=== PATIENT | male | born 1965 | race African-American/Black ===

== ENCOUNTER 2018-09-01 23:52 | Emergency (ER) | payer OTHER ==
[2018-09-02 00:16] VITALS: BP 176/91; PULSE 84; TEMP 97.4; BMI 35.1
--- NOTE | 2018-09-02 00:30 | PDOC ---
Attending Attestation - Resident Resident Name: Jax Echeverria - ED Attending Attestation I have performed the following: I have examined & evaluated the patient, The case was reviewed & discussed with the resident, I agree w/resident's findings & plan - HPI HPI: 09/02/18 00:47 53-year-old male requesting a record of his blood pressure medications. Patient is currently asymptomatic. He has had no associated chest pain neurological disturbance shortness of breath or headache. Patient cannot recall what his blood pressure medication was. He does admit to heavy smoking. He did admit he recently obtained insurance. - Physicial Exam PE: 09/02/18 00:47 GENERAL: Awake, in no acute distress HEAD: No signs of trauma EYES: ENT:clear without exudates. Moist mucosa NECK: Normal ROM, LUNGS:. Normal work of breathing. HEART: Regular rate and rhythm, ABDOMEN: Soft, nondistended CHEST WALL: BACK: No midline tenderness. EXTREMITIES:. No erythema, or tenderness NEUROLOGICAL: Alert, SKIN: Warm, Dry - Medical Decision Making 09/02/18 00:48 53-year-old male requesting refill of antihypertensives Patient currently asymptomatic He has agreed to follow-up with his primary care office in the morning prior to going to work, he was advised that should he develop headache, numbness or weakness in the extremities or face, chest pain shortness of breath or any new symptoms to return to the emergency department and not to wait for an appointment.
--- NOTE | 2018-09-02 00:44 | PDOC ---
History of Present Illness - General Chief Complaint: Blood Pressure Problem Stated Complaint: HIGH BLOOD PRESSURE Time Seen by Provider: 09/02/18 00:15 History Source: Patient, Old Records Exam Limitations: No Limitations - History of Present Illness Initial Comments: HPI: 53 y/o male presenting to [facility] ER complaining of high blood pressure without symptoms. Has a history of HTN and was previously on unknown antihypertensive mediation. Stopped taking it three months ago after losing his insurance. He recently re-obtained health insurance but has not re-established care with [facility]. PCP: [facility] Social Hx: - Works construction - Active tobacco smoker Medical Hx: - HTN Review of Systems: In addition to that documented in the HPI above, the additional ROS was obtained : Constitutional: Denies fevers or chills Head: Denies vision changes ENMT: Denies sore throat CV: Denies chest pain Resp: Denies SOB GI: Denies vomiting or diarrhea : Denies painful urination MSK: Denies recent trauma Skin: Denies new rashes Neuro: Denies new numbness or tingling or weakness Endocrine: Denies polyuria Heme: Denies bleeding or bruising Physical Examination: Constitutional: Well-developed, well-nourished adult male in no acute distress or obvious discomfort. Found semi-fowlers on hospital bed. Alert and oriented x4. Answered all questions appropriately and completely. Speech was non-labored , non-pressured. Head: Normocephalic. No obvious external signs of trauma. Eyes: Pupils 4mm and PERRL bilaterally. EOMI. Sclerae white. Conjunctiva moist and not injected. Ears: Hearing grossly intact. Nose: No nasal discharge. Throat: Oral cavity and pharynx normal. No inflammation, swelling, exudate, or lesions. Teeth and gingiva in good general condition. Neck: Supple, trachea is midline. Cardiovascular / Chest: Regular rate and regular rhythm. No murmur, rubs, clicks , or gallops. Peripheral pulses: radial pulses full. No anterior chest wall tenderness. No pretibial edema. Respiratory: Breathing unlabored. Equal chest rise and fall. Clear to auscultation bilaterally. No stridor, no wheezing, no rhonchi. Gastrointestinal: abdomen is soft, non-tender, non-distended. Neuro: Alert and oriented. Moving all four extremities spontaneously. No focal deficits. Cranial nerves intact. Sensation to all four extremities intact. Upper and lower extremities: proximal and distal strength 5/5. Residential Director strength 5/ 5 - equal and symmetric. Plantar flexion and dorsiflexion 5/5. No nuchal rigidity. Gait normal. Skin: Warm, dry, and intact. Psych: Affect: appropriate. Mood: normal. MDM: *Reviewed vital signs, nursing notes, and prior visit documentation (if available). 53 y/o male presenting with asymptomatic hypertension in the setting of known essential hypertension. Not compliant with medications. In process of re- establishing care at [facility]. Physical exam unremarkable. Discussed importance of smoking cessation and medication compliance. Explained the dangers of prescribing maintenance medications in the ED. Pt expressed verbal understanding. Will follow up with [facility] tomorrow morning. Also provided referral for resident clinic for secondary PCP. Jax Echeverria M.D., PGY1 Emergency Medicine Resident Past History - Past Medical History Allergies/Adverse Reactions: Allergies Allergy/AdvReac Type Severity Reaction Status Date / Time No Known Allergies Allergy Verified 06/14/14 09:06 Home Medications: Ambulatory Orders Lisinopril [Prinivil -] 10 mg PO DAILY 06/14/14 COPD: No HTN: Yes - Suicide/Smoking/Psychosocial Hx Smoking History: Current every day smoker Number of Cigarettes Smoked Daily: 10 Information on smoking cessation initiated: No Hx Alcohol Use: No Substance Use Type: None *Physical Exam - Vital Signs Last Vital Signs Temp Pulse Resp BP Pulse Ox 97.4 F L 84 18 176/91 H 100 09/02/18 00:14 09/02/18 00:14 09/02/18 00:14 09/02/18 00:14 09/02/18 00:14 *DC/Admit/Observation/Transfer Diagnosis at time of Disposition: Hypertension Qualifiers: Hypertension type: unspecified Qualified Code(s): I10 - Essential (primary) hypertension - Discharge Dispostion Disposition: HOME Condition at time of disposition: Good Decision to Admit order: No - Referrals Referrals: Mario Hoffmann [Primary Care Provider] - [facility] [place] [Provider Group] - Patient Instructions Printed Discharge Instructions: DI for High Blood Pressure Additional Instructions: You were seen today for high blood pressure and a refill of your medications. Your blood pressure was not elevated above the level concerning for an acute stroke. Unfortunately, the emergency department does not write prescriptions for non-emergent maintenance medications. It would be dangerous to start these types of medications without close follow up. Please follow up with your primary care doctor tomorrow at [facility] to re- establish care. In case you are unable to see a doctor at [facility], I have placed a referral for you to see the [facility] [place]. You will need to call to make an appointment. The number is [phone]. The address is as follows: [address] [place] [address] Go to the nearest emergency department if your condition worsens or you feel like you need additional emergency evaluation. Print Language: JAPANESE - Post Discharge Activity Forms/Work/School Notes: Back to Work
== END 2018-09-02 01:55 | disposition home or self-care (01) ==
LOC: JER 23:52
DX: I10 Essential (primary) hypertension (principal)
CPT/HCPCS: 99281-25

== ENCOUNTER 2020-12-28 01:41 | Emergency (ER) | payer OTHER ==
[2020-12-28 01:54] VITALS: BMI 33.5
[2020-12-28] MEDS ORDERED: ACETAMINOPHEN 325 MG TABLET (FP) PO ONE (02:15)
[2020-12-28] MEDS ORDERED: ACETAMINOPHEN 325 MG TABLET (FP) ONE (02:24)
[2020-12-28 03:12] LABS: BASO % 0.7 % (0-2.0); EOS % 1.9 % (0-4.5); HEMATOCRIT 39.6 % (35.4-49); HEMOGLOBIN 13.8 GM/dL (11.7-16.9); LYMPH % 21.9 % (8-40); MCH 31.3 pg (25.7-33.7); MCHC 34.9 g/dl (32.0-35.9); MEAN CELL VOLUME 89.6 fl (80-96); MEAN PLT VOLUME 8.3 fl (7.5-11.1); MONO % 4.7 % (3.8-10.2); NEUT % 70.8 % (42.8-82.8); PLATELET COUNT 183 10^3/uL (134-434); RBC 4.42 M/mm3 (4.00-5.60); RDW 12.9 % (11.9-15.9); WHITE BLOOD COUNT 10.8 K/mm3 (4.0-10.0)
[2020-12-28 03:31] LABS: CHLORIDE 110 mmol/L (98-107); SODIUM 141 mmol/L (136-145)
[2020-12-28 03:34] LABS: ALBUMIN 3.3 g/dl (3.4-5.0); ANION GAP 4 MMOL/L (8-16); BLOOD UREA NITROGEN 14.3 mg/dL (7-18); CALCIUM 8.6 mg/dL (8.5-10.1); CO2 28 mmol/L (21-32); GLUCOSE,RANDOM 102 mg/dL (74-106)
[2020-12-28 03:37] LABS: CREATININE 0.8 mg/dL (0.55-1.3); SGOT/AST 26 U/L (15-37); SGPT/ALT 35 U/L (13-61)
[2020-12-28 03:39] LABS: BILIRUBIN,TOTAL 0.4 mg/dL (0.2-1); TOT PROT 6.5 g/dl (6.4-8.2)
[2020-12-28 03:40] LABS: ALK PHOS 82 U/L (45-117)
[2020-12-28 08:26] VITALS: BP 120/71; PULSE 82; TEMP 97.4
== END 2020-12-28 08:25 | disposition home or self-care (01) ==
LOC: JER 01:41
DX: R07.9 Chest pain, unspecified (principal)
CPT/HCPCS: 36415; 71046-TC-FY; 80053; 82550; 84484; 85025; 93005; 93010; 99284-25

== ENCOUNTER 2021-05-20 00:48 | Emergency (ER) | payer OTHER ==
[2021-05-20 01:05] VITALS: BP 173/88; PULSE 66; TEMP 98.8; BMI 31.1
[2021-05-20] MEDS ORDERED: HYDROCORTISONE 1% TOPICAL OINT 30 GM TUBE TP ONE (01:52)
[2021-05-20] MEDS ORDERED: CEPHALEXIN MONOHYDRATE 500 MG CAPSULE (UD) ONE (02:13)
[2021-05-20] MEDS ORDERED: CEPHALEXIN MONOHYDRATE 500 MG CAPSULE (UD) PO ONE (02:36)
== END 2021-05-20 02:40 | disposition home or self-care (01) ==
LOC: JER 00:48
DX: L24.9 Irritant contact dermatitis, unspecified cause (principal)
CPT/HCPCS: 99283-25

== ENCOUNTER 2021-05-21 08:14 | Emergency (ER) | payer OTHER ==
[2021-05-21 08:20] VITALS: BP 167/81; PULSE 68; TEMP 98.8; BMI 37.4
[2021-05-21] MEDS ORDERED: ACETAMINOPHEN 500 MG TABLET (FP) PO ONE (09:38)
[2021-05-21] MEDS ORDERED: ACETAMINOPHEN 500 MG TABLET (FP) ONE (11:00)
[2021-05-21 11:33] LABS: HEMOGLOBIN 14.3 GM/dL (11.7-16.9); MCH 30.6 pg (25.7-33.7); MCHC 34.1 g/dl (32.0-35.9); MEAN CELL VOLUME 89.8 fl (80-96); MEAN PLT VOLUME 8.3 fl (7.5-11.1); PLATELET COUNT 200 10^3/uL (134-434); RBC 4.68 M/mm3 (4.00-5.60); RDW 12.4 % (11.9-15.9); WHITE BLOOD COUNT 9.9 K/mm3 (4.0-10.0)
[2021-05-21 11:50] LABS: CHLORIDE 109 mmol/L (98-107); SODIUM 141 mmol/L (136-145)
[2021-05-21 11:53] LABS: ALBUMIN 3.7 g/dl (3.4-5.0); ANION GAP 4 MMOL/L (8-16); BLOOD UREA NITROGEN 12.2 mg/dL (7-18); CALCIUM 9.2 mg/dL (8.5-10.1); CO2 29 mmol/L (21-32); GLUCOSE,RANDOM 83 mg/dL (74-106)
[2021-05-21 11:56] LABS: CREATININE 0.7 mg/dL (0.55-1.3); SGOT/AST 21 U/L (15-37); SGPT/ALT 38 U/L (13-61)
[2021-05-21 11:58] LABS: BILIRUBIN,TOTAL 0.5 mg/dL (0.2-1)
[2021-05-21 11:59] LABS: ALK PHOS 100 U/L (45-117)
== END 2021-05-21 12:55 | disposition home or self-care (01) ==
LOC: JER 08:14
DX: M25.512 Pain in left shoulder (principal)
CPT/HCPCS: 36415; 71046-TC-FY; 73030-TC-LT-FY; 80053; 84484; 85027; 93005; 93010; 99285-25

== ENCOUNTER 2021-11-12 19:26 | Emergency (ER) | payer OTHER ==
[2021-11-12 19:49] VITALS: BP 137/87; PULSE 67; RESP 20; TEMP 98.2; BMI 39.9
[2021-11-12] MEDS ORDERED: DIPHTH,PERTUSS(ACELL),TET 0.5 ML DISP.SYRIN IM ONE ×2 (20:45→20:46)
[2021-11-12] MEDS ORDERED: AMOX TR/POT CLAV 875MG/125MG TABLETS (FP) PO ONE (20:45)
[2021-11-12] MEDS ORDERED: AMOX TR/POT CLAV 875MG/125MG TABLETS (FP) ONE (20:46)
== END 2021-11-12 20:51 | disposition home or self-care (01) ==
LOC: JER 19:26 → JERFT 19:26
PROC: 3E0234Z Introduction of Serum, Toxoid and Vaccine into Muscle, Percutaneous Approach (ICD-10-PCS; principal; 2021-11-12)
DX: S81.832A Puncture wound without foreign body, left lower leg, initial encounter (principal); W54.0XXA Bitten by dog, initial encounter
CPT/HCPCS: 90471; 90715; 99284-25

== ENCOUNTER 2023-04-15 12:36 | Emergency (ER) | payer OTHER ==
[2023-04-15 12:48] VITALS: BP 141/72; PULSE 83; RESP 18; TEMP 98.6; BMI 32.3
[2023-04-15] MEDS ORDERED: FLUORESCEIN NA 1 EA STRIP OS ONE (14:35)
[2023-04-15] MEDS ORDERED: FLUORESCEIN NA 1 EA STRIP ONE (14:46)
[2023-04-15] MEDS ORDERED: ERYTHROMYCIN 0.5% OPHTHALMIC OINTMENT 3.5 GM TUBE ONE (15:12)
[2023-04-15] MEDS ORDERED: ERYTHROMYCIN 0.5% OPHTHALMIC OINTMENT 3.5 GM TUBE OD STA (15:27)
[2023-04-16] MEDS ORDERED: ERYTHROMYCIN 0.5% OPHTHALMIC OINTMENT 3.5 GM TUBE OS ONE (14:58)
== END 2023-04-15 16:05 | disposition home or self-care (01) ==
LOC: JERFT 12:36
DX: S01.112A Laceration without foreign body of left eyelid and periocular area, initial encounter (principal); H57.11 Ocular pain, right eye; W21.00XA Struck by hit or thrown ball, unspecified type, initial encounter
CPT/HCPCS: 99283-25

== ENCOUNTER 2023-09-13 10:09 | Emergency (ER) | payer OTHER ==
[2023-09-13 10:18] VITALS: BMI 32.1
[2023-09-13] MEDS ORDERED: KETOROLAC TROMETHAMINE 15 MG/ML VIAL ONE (10:39)
[2023-09-13] MEDS: KETOROLAC TROMETHAMINE 15 MG/ML VIAL IVPUSH ONE (10:50)
[2023-09-13 11:07] LABS: BASO % 0.4 % (0-2.0); EOS % 0.2 % (0-4.5); HEMATOCRIT 41.3 % (35.4-49); HEMOGLOBIN 13.9 GM/dL (11.7-16.9); LYMPH % 9.3 % (8-40); MCH 30.6 pg (25.7-33.7); MCHC 33.7 g/dl (32.0-35.9); MEAN CELL VOLUME 90.6 fl (80-96); MEAN PLT VOLUME 9.1 fl (7.5-11.1); MONO % 6.7 % (3.8-10.2); NEUT % 83.4 % (42.8-82.8); PLATELET COUNT 203 10^3/uL (134-434); RBC 4.56 M/mm3 (4.00-5.60); RDW 12.5 % (11.9-15.9); WHITE BLOOD COUNT 17.9 K/mm3 (4.0-10.0)
[2023-09-13 11:21] LABS: POTASSIUM 4.3 mmol/L (3.5-5.1)
[2023-09-13 11:23] LABS: CALCIUM 9.2 mg/dL (8.5-10.1)
[2023-09-13 11:24] LABS: ALBUMIN 3.4 g/dl (3.4-5.0); BLOOD UREA NITROGEN 10.7 mg/dL (7-18)
[2023-09-13 11:27] LABS: CREATININE 0.7 mg/dL (0.55-1.3)
[2023-09-13 11:28] LABS: BILIRUBIN,TOTAL 0.9 mg/dL (0.2-1)
[2023-09-13 11:29] LABS: TOT PROT 7.1 g/dl (6.4-8.2)
[2023-09-13 15:01] VITALS: TEMP 98.7
[2023-09-13] MEDS ORDERED: AMPICILLIN NA/SULBACTAM NA 3 GM/100 ML BAG IVPB ONE ×2 (15:45→23:32)
[2023-09-13] MEDS ORDERED: DEXAMETHASONE SOD PHOSPHATE 10 MG/1 ML VIAL ONE (15:45)
[2023-09-13] MEDS: DEXAMETHASONE SOD PHOSPHATE 10 MG/1 ML VIAL IVPUSH ONE (15:53)
[2023-09-13] MEDS: AMPICILLIN NA/SULBACTAM NA 3 GM in DEXTROSE 5%-WATER 100 ML IVPB ONE (16:16)
[2023-09-14 00:22] VITALS: BP 127/61; PULSE 54; RESP 14
[2023-09-14] MEDS: AMPICILLIN NA/SULBACTAM NA 3 GM in DEXTROSE 5%-WATER 100 ML IVPB ONE (00:31)
== END 2023-09-14 00:27 | disposition short-term general hospital (02) ==
LOC: JER 10:09
PROC: 3E03329 Introduction of Other Anti-infective into Peripheral Vein, Percutaneous Approach (ICD-10-PCS; principal; 2023-09-13)
PROC: 3E033GC Introduction of Other Therapeutic Substance into Peripheral Vein, Percutaneous Approach (ICD-10-PCS; 2023-09-13)
DX: J39.2 Other diseases of pharynx (principal); R07.0 Pain in throat
CPT/HCPCS: 36415; 70491-TC; 80053; 85025; 99285-25; J1100; Q9967